=== PATIENT | female | born 1995 | race Caucasian/White ===

== ENCOUNTER 2016-12-10 | Outpatient (CLI) | payer MEDICAID | END 2016-12-10 23:41 | disposition critical access hospital (66) | DX: R45.851 Suicidal ideations (principal) | CPT/HCPCS: A0425; A0429 ==

== ENCOUNTER 2016-12-11 00:10 | Emergency (ER) | payer MEDICAID ==
[2016-12-11] MEDS ORDERED: NICOTINE 21 MG PATCH TOP ONE (04:16)
[2016-12-11] MEDS ORDERED: LORazepam 0.5 MG TABLET ONE (04:17)
[2016-12-11] MEDS ORDERED: LORazepam 0.5 MG TABLET PO STA (04:17)
[2016-12-11] MEDS ORDERED: NICOTINE 21 MG PATCH TOP STA (04:17)
== END 2016-12-11 10:28 | disposition home or self-care (01) ==
DX: F32.9 Major depressive disorder, single episode, unspecified (principal); R45.851 Suicidal ideations; F17.200 Nicotine dependence, unspecified, uncomplicated
CPT/HCPCS: 36415; 80048; 80306; 80307; 80320; 80329; 81003; 81025; 85025; 99284; A9270

== ENCOUNTER 2017-03-02 01:16 | Outpatient (CLI) | payer MEDICAID | END 2017-03-02 01:17 | disposition EMS.NT | DX: M79.645 Pain in left finger(s) (principal); S00.81XA Abrasion of other part of head, initial encounter; Y04.1XXA Assault by human bite, initial encounter ==